=== PATIENT | female | born 1980 | race African-American/Black ===

== ENCOUNTER 2019-08-22 10:36 | Emergency (ER) | payer SELFPAY ==
[2019-08-22 10:41] VITALS: BP 142/90
[2019-08-22] MEDS ORDERED: LIDOCAINE 2% VISCOUS SOLN 20 ML UDCUP PO ONE (11:27)
--- NOTE | 2019-08-22 11:30 | ER Document Report ---
HPI - HPI Time Seen by Provider: 08/22/19 11:19 Pain Level: Denies Context: Patient is a 39-year-old female who presents emergency department with a chief complaint of tooth pain to tooth #19. Yesterday she had tooth pain, and when she woke up this morning she noticed her left lower jaw was swollen. - CONSTITUTIONAL Constitutional: DENIES: Fever, Chills - EENT EENT: DENIES: Sore Throat, Ear Pain, Eye problems - NEURO Neurology: DENIES: Headache, Weakness, Vision blurred, Dizzinesss / Vertigo - CARDIOVASCULAR Cardiovascular: DENIES: Chest pain - RESPIRATORY Respiratory: DENIES: Trouble Breathing, Coughing - GASTROINTESTINAL Gastrointestinal: DENIES: Abdominal Pain, Black / Bloody Stools - URINARY Urinary: DENIES: Dysuria, Urgency, Frequency - MUSCULOSKELETAL Musculoskeletal: DENIES: Extremity pain Past Medical History - General Information source: Patient - Social History Smoking Status: Never Smoker Chew tobacco use (# tins/day): No Frequency of alcohol use: None Drug Abuse: None Family History: Reviewed & Not Pertinent, DM - Mother Type II-insulin dependent, Other - Maternal grandmother decesed of CHF Patient has suicidal ideation: No Patient has homicidal ideation: No - Past Medical History Cardiac Medical History: Denies: Hx Coronary Artery Disease, Hx Heart Attack, Hx Hypertension Pulmonary Medical History: Denies: Hx Asthma, Hx Bronchitis, Hx COPD - HX PE 2006 during preg, Hx Pneumonia Neurological Medical History: Reports: Hx Seizures - as . Denies: Hx Cerebrovascular Accident Musculoskeletal Medical History: Denies Hx Arthritis Past Surgical History: Reports: Hx Tubal Ligation. Denies: Hx Pacemaker - Immunizations Hx Diphtheria, Pertussis, Tetanus Vaccination: Yes - 2009 Vertical Provider Document - CONSTITUTIONAL Agree With Documented VS: Yes Exam Limitations: No Limitations General Appearance: No Apparent Distress - INFECTION CONTROL TRAVEL OUTSIDE OF THE [place] IN LAST 30 DAYS: No - HEENT HEENT: Atraumatic, PERRLA. negative: Normocephalic - Edema noted to left lower jaw Mouth Diagram: 1 - Chip noted - NECK Neck: Normal Inspection - RESPIRATORY Respiratory: Breath Sounds Normal, No Respiratory Distress - CARDIOVASCULAR Cardiovascular: Regular Rate, Regular Rhythm Pulses: Normal: Radial - MUSCULOSKELETAL/EXTREMETIES Musculoskeletal/Extremeties: FROM - NEURO Level of Consciousness: Awake, Alert, Appropriate - DERM Integumentary: Warm, Dry, No Rash Course - Re-evaluation Re-evalutation: 08/22/19 11:32 Patient's physical exam and history is most consistent with a infected tooth with abscess. Patient is able to swallow, airway is patent, vital signs are normal. I do not suspect Dru's angina, peritonsilar abscess, or airway obstruction. The patient will be started on oral antibiotics. Patient is allergic to penicillin, therefore she will be written clindamycin. She does not have insurance and I did not want to put her in financial burden to evaluate the possible abscess to her left lower jaw. Patient has had good results with clindamycin before. I have given the patient education on their antibiotics. Patient was given instructions to follow-up with a dentist this week. Return precautions were given. Verbal discharge instructions were given. Patient verbalized understanding. Patient is stable for discharge. - Vital Signs Vital signs: Temp Pulse Resp BP Pulse Ox 98.7 F 72 14 142/90 H 99 08/22/19 10:39 08/22/19 10:39 08/22/19 10:39 08/22/19 10:39 08/22/19 10:39 Discharge - Discharge Clinical Impression: Tooth ache, Tooth abscess Condition: Stable Disposition: HOME, SELF-CARE Instructions: Abscess ([facility]), [facility], Clindamycin ([facility]), Toothache ([facility]) Additional Instructions: You have been seen in the emergency department for a toothache. You may take ibuprofen 600 mg and Tylenol 1000 mg every 6 hours as needed for the pain. You have also been given topical lidocaine. Placed that to the affected tooth as needed to help with pain. You have also been prescribed antibiotics. Please take the antibiotics as prescribed, even if you start to feel better. If you develop a fever greater than 100.4 F, or have any symptoms that are worrisome to you, please return to the emergency department. Please follow-up with a dentist this week in regards to your visit. Please follow[facility]up with [facility]. You cannot also follow-up with any free clinics in [place]. Prescriptions: Clindamycin HCl [Cleocin 150 mg Capsule] 300 mg PO Q6 7 Days #56 capsule Referrals: [facility] [Provider Group] - Follow up in 1 week
== END 2019-08-22 11:38 | disposition home or self-care (01) ==
LOC: ER 10:36
DX: K04.7 Periapical abscess without sinus (principal); K08.89 Other specified disorders of teeth and supporting structures; R22.0 Localized swelling, mass and lump, head
CPT/HCPCS: 99282; J3490